=== PATIENT | female | born 1995 | race American Indian/Alaskan Native ===

== ENCOUNTER 2017-01-01 02:18 | Emergency (ER) | payer MEDICAID ==
[2017-01-01] MEDS ORDERED: ATIVAN IM ONE ×2 (02:52→06:47)
[2017-01-01] MEDS ORDERED: TYLENOL PO ONE (04:44)
[2017-01-01 05:45] LABS: Basophils % (Auto) 0.8 % (0.0-1.8); Eosinophils % (Auto) 5.2 % (0.0-4.3); Hematocrit 36.8 % (30.3-42.9); Hemoglobin 11.9 gm/dl (10.1-14.3); Mean Corpuscular HGB Conc 32 % (30-34); Mean Corpuscular Hemoglobin 27 pg (28-32); Mean Corpuscular Volume 84 fl (79-97); Platelet Count 293 K/mm3 (140-440); Red Blood Count 4.37 M/mm3 (3.65-5.03); Red Cell Distribution Width 14.4 % (13.2-15.2); White Blood Count 5.6 K/mm3 (4.5-11.0)
[2017-01-01 06:03] LABS: Anion Gap 19 mmol/L; Blood Urea Nitrogen 6 mg/dL (7-17); Calcium 8.2 mg/dL (8.4-10.2); Carbon Dioxide 23 mmol/L (22-30); Chloride 103.8 mmol/L (98-107); Glucose 92 mg/dL (65-100); Potassium 3.8 mmol/L (3.6-5.0); Sodium 142 mmol/L (137-145)
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
--- NOTE | 2017-01-01 06:32 | Cat Scan Report ---
FINAL REPORT PROCEDURE: CT FACIAL BONES WO CON TECHNIQUE: Computerized tomography of the facial bones and soft tissues with axial and coronal sections performed from the cranial aspect of the frontal sinuses to the caudal portion of the mandible without contrast material. HISTORY: facial pain COMPARISON: No prior studies are available for comparison. FINDINGS: Bones: There is an impacted right medial orbital wall fracture. A slightly displaced nasal bone fracture is noted. The remaining osseous structures appear intact. Paranasal sinuses: Moderate opacification of the bilateral ethmoid and right maxillary sinuses.. Soft tissues: There is moderate soft tissue swelling identified over the right orbit and cheek.. Other: The orbits appear intact. The extraocular muscles are intact without entrapment. There is right orbital emphysema. IMPRESSION: Impacted right medial orbital wall fracture. There is associated orbital emphysema and soft tissue swelling over the right orbit. Mild opacification of the sinuses as described.
[2017-01-01] MEDS ORDERED: ATIVAN ONE (06:34)
[2017-01-01] MEDS ORDERED: HALDOL ONE (06:34)
[2017-01-01] MEDS ORDERED: HALDOL IM ONE (06:47)
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
[2017-01-01] MEDS ORDERED: FUL-GLO OP ONE (10:02)
[2017-01-01] MEDS ORDERED: TETRACAINE 0.5% OD STA (10:02)
[2017-01-01 12:08] VITALS: BP 110/78
== END 2017-01-01 12:09 | disposition home or self-care (01) ==
LOC: ED 02:18
DX: S02.81XA Fracture of other specified skull and facial bones, right side, initial encounter for closed fracture (principal); F10.129 Alcohol abuse with intoxication, unspecified; F17.200 Nicotine dependence, unspecified, uncomplicated; F39 Unspecified mood [affective] disorder; X58.XXXA Exposure to other specified factors, initial encounter; Y93.9 Activity, unspecified; Y99.9 Unspecified external cause status; Y92.9 Unspecified place or not applicable
CPT/HCPCS: 36415; 70450; 70486; 72125; 80048; 82550; 84703; 85025; 96372; 99285; G0480; J1630; J2060; 80320

== ENCOUNTER 2017-01-30 14:54 | Emergency (ER) | payer MEDICAID ==
[2017-01-30 17:34] LABS: Bilirubin,Urine NEG (Negative); Blood,Urine NEG (Negative); Ketones,Urine TR mg/dL (Negative); Leukocyte Esterase,Urine NEG (Negative); Mucus,Urine 3+ /HPF; Nitrite,Urine NEG (Negative)
--- NOTE | 2017-01-30 19:13 | Ultrasound Report ---
FINAL REPORT EXAM: US OB TRANSVAGINAL HISTORY: LOWER PELVIC PAIN quantitative beta HCG level is 5244. TECHNIQUE: Real-time sonography was performed of the gravid uterus endovaginally and images are submitted for interpretation. PRIORS: None. FINDINGS: There is a gestational sac in the uterus. A normal-appearing yolk sac is identified. A pole is not yet demonstrated. Average sac diameter is 9.3 mm for an estimated gestational age of 5 weeks 5 days. There is a small hypoechoic area measuring 17 x 3 x 3 mm possibly representing a small subchorionic hematoma. The right ovary is not visualized. The left ovary has a 3.2 cm echogenic area most likely representing a hemorrhagic cyst. The left ovary measures 4.5 x 3.0 x 2.5 cm. IMPRESSION: Findings are consistent with an early IUP at 5 weeks 5 days. Possible small subchorionic hematoma. Followup ultrasound is recommended in 1-2 weeks
--- NOTE | 2017-01-30 19:19 | Ultrasound Report ---
FINAL REPORT EXAM: US OB \T\lt; = 14 WEEKS FETUS HISTORY: LOWER PELVIC PAIN quantitative beta HCG level is 5244. TECHNIQUE: Real-time sonography was performed of the gravid uterus transabdominally and images are submitted for interpretation. PRIORS: None. FINDINGS: There is a gestational sac in the uterus. A normal-appearing yolk sac is identified. A pole is not yet demonstrated. Average sac diameter is 9.3 mm for an estimated gestational age of 5 weeks 5 days. There is a small hypoechoic area measuring 17 x 3 x 3 mm possibly representing a small subchorionic hematoma. The right ovary is not visualized. The left ovary has a 3.2 cm echogenic area most likely representing a hemorrhagic cyst. The left ovary measures 4.5 x 3.0 x 2.5 cm. IMPRESSION: Findings are consistent with an early IUP at 5 weeks 5 days. Possible small subchorionic hematoma. Followup ultrasound is recommended in 1-2 weeks
--- NOTE | 2017-01-30 21:53 | Emergency Department Report ---
ED Female HPI - General Chief complaint: Urogenital-Female Stated complaint: ABD PAIN Time Seen by Provider: 01/30/17 21:47 Source: patient, RN notes reviewed Mode of arrival: Ambulatory Limitations: No Limitations - History of Present Illness Initial comments: This is a 21-year-old female. I have evaluated her in the past. Her CLERICAL SPECIALIST doctor is with primary obstetrics. She is 2, para 1. She presents to the ER with suprapubic abdominal discomfort and positive home test. No nausea, vomiting or diarrhea. There is no right lower quadrant pain. No irritative or obstructive urinary symptoms. No vaginal bleeding. Symptoms are intermittent. They have no exacerbating factors or relieving factors. MD Complaint: pelvic pain -: Gradual Location: suprapubic Severity: mild Quality: cramping Improves with: none Worsens with: none Are you Now?: Yes Associated Symptoms: abdominal pain. denies: vaginal discharge, vaginal bleeding, headaches, loss of appetite, dysuria, hematuria, rash, seizure, shortness of breath, syncope, weakness - Related Data Sexually active: Yes Previous Rx's Medication Instructions Recorded Last Taken Type Bacitracin [Bacitracin Ophth] 3.5 gm OP Q4HR #1 oint...g. 01/01/17 Unknown Rx Mineral Oil/Petrolatum,White 3.5 gm OP Q1HR #1 oint...g. 01/01/17 Unknown Rx [Refresh Lacri-Lube Ointment] Doxylamine/Pyridoxine HCl 1 each PO QHS PRN #30 tablet. 01/30/17 Unknown Rx [Aleksandra See 10-10 mg Tablet] Vit W-Ca,Fe,FA(<1 mg) 1 each PO QDAY #30 tablet 01/30/17 Unknown Rx [ Vitamins] Allergies Allergy/AdvReac Type Severity Reaction Status Date / Time Penicillins Allergy Itching Verified 01/30/17 16:03 ED Review of Systems ROS: Stated complaint: ABD PAIN Other details as noted in HPI Constitutional: denies: fever, malaise Eyes: denies: eye pain, eye discharge ENT: denies: epistaxis Respiratory: denies: cough Cardiovascular: denies: chest pain Gastrointestinal: abdominal pain Genitourinary: denies: urgency, dysuria, frequency, abnormal menses Musculoskeletal: denies: back pain Skin: denies: lesions Neurological: denies: headache, weakness ED Past Medical Hx - Past Medical History Hx Psychiatric Treatment: Yes (Panic attacks) - Surgical History Additional Surgical History: C section - Social History Smoking Status: Former Smoker Substance Use Type: None - Medications Home Medications: Home Medications Medication Instructions Recorded Confirmed Last Taken Type Bacitracin [Bacitracin Ophth] 3.5 gm OP Q4HR #1 oint...g. 01/01/17 Unknown Rx Mineral Oil/Petrolatum,White 3.5 gm OP Q1HR #1 oint...g. 01/01/17 Unknown Rx [Refresh Lacri-Lube Ointment] Doxylamine/Pyridoxine HCl 1 each PO QHS PRN #30 tablet. 01/30/17 Unknown Rx [Diclegis 10-10 mg Tablet] Vit W-Ca,Fe,FA(<1 mg) 1 each PO QDAY #30 tablet 01/30/17 Unknown Rx [ Vitamins] ED Physical Exam - General Limitations: No Limitations General appearance: alert, in no apparent distress - Head Head exam: Present: atraumatic, normocephalic - Eye Eye exam: Present: normal appearance, EOMI. Absent: nystagmus - ENT ENT exam: Present: normal exam, normal orophraynx, mucous membranes moist, normal external ear exam - Neck Neck exam: Present: normal inspection, full ROM. Absent: tenderness, meningismus - Respiratory Respiratory exam: Present: normal lung sounds bilaterally. Absent: respiratory distress, wheezes, rales, rhonchi, stridor, chest wall tenderness - Cardiovascular Cardiovascular Exam: Present: regular rate, normal rhythm, normal heart sounds. Absent: bradycardia, tachycardia, irregular rhythm, systolic murmur, diastolic murmur, rubs, gallop - GI/Abdominal GI/Abdominal exam: Present: soft, normal bowel sounds. Absent: distended, tenderness, guarding, rebound, rigid, pulsatile mass - Extremities Exam Extremities exam: Present: normal inspection, full ROM, normal capillary refill. Absent: tenderness, pedal edema, joint swelling, calf tenderness - Back Exam Back exam: Present: normal inspection, full ROM. Absent: tenderness, CVA tenderness (R), CVA tenderness (L), muscle spasm, paraspinal tenderness, vertebral tenderness - Neurological Exam Neurological exam: Present: alert, oriented X3, normal gait, other (Extraocular movements intact. Tongue midline. No facial droop. Facial sensation intact to light touch in the V1, V2, V3 distribution bilaterally. 5 and 5 strength in 4 extremities.. Sensation is intact to light touch in 4 extremities.). Absent : motor sensory deficit - Psychiatric Psychiatric exam: Present: normal affect, normal mood - Skin Skin exam: Present: warm, dry, intact, normal color. Absent: rash ED Course Vital Signs 01/30/17 01/30/17 01/30/17 15:58 21:30 23:35 Temperature 98.6 F 98.5 F Pulse Rate 87 86 84 Respiratory 17 18 18 Rate Blood Pressure 109/68 Blood Pressure 113/68 115/74 [Right] O2 Sat by Pulse 100 100 99 Oximetry - Reevaluation(s) Reevaluation #1: 01/30/17 22:15 differential diagnosis: Threatened miscarriage, subchorionic hematoma, urinary tract infection. Assessment and plan: 21-year-old female who is found to be , transvaginal ultrasounds demonstrates a gestational sac of 5 weeks and 5 days, with a probable small subchorionic hematoma. She is afebrile with reassuring vital signs, with no abdominal tenderness, rebound or guarding. Quantitative hCG is 5244. Urinalysis is not corroborate urinary tract infection. CBC and type and screen are ordered. Pelvic examination is pending. Reevaluation #2: 01/30/17 23:15 Rh+. CBC stable. Declined gynecologic examination. Reports that she is going to follow up tomorrow with her outpatient production operations engineer. She will be discharged at this time. Vital signs stable. return precautions reviewed. Incidentally, patient notes that she has not followed up with ophthalmology, she has intact extraocular movements at this time, visual acuity intact to call her perception , finger counting, rating at a close distance. She is instructed to follow up with outpatient ophthalmology. ED Medical Decision Making - Lab Data Result diagrams: 01/30/17 22:00 Vital Signs 01/30/17 01/30/17 15:58 21:30 Temperature 98.6 F Pulse Rate 87 86 Respiratory 17 18 Rate Blood Pressure 109/68 Blood Pressure 113/68 [Right] O2 Sat by Pulse 100 100 Oximetry Lab Results 03/22/17 03/22/17 Range/Units 16:14 Unknown HCG, Quant 5244 H (0-4) mIU/mL Urine Color Yellow (Yellow) Urine Turbidity Clear (Clear) Urine pH 6.0 (5.0-7.0) Ur Specific [place] 1.027 (1.003-1.030) Urine Protein 30 mg/dl (Negative) mg/dL Urine Glucose (UA) Neg (Negative) mg/dL Urine Ketones Tr (Negative) mg/dL Urine Blood Neg (Negative) Urine Nitrite Neg (Negative) Urine Bilirubin Neg (Negative) Urine Urobilinogen 4.0 (<2.0) mg/dL Ur Leukocyte Esterase Neg (Negative) Urine WBC (Auto) 1.0 (0.0-6.0) /HPF Urine RBC (Auto) 2.0 (0.0-6.0) /HPF U Epithel Cells (Auto) 4.0 (0-13.0) /HPF Urine Mucus 3+ /HPF - Radiology Data Radiology results: report reviewed, image reviewed Transvaginal ultrasound demonstrates intrauterine , gestational sac is noted at 5 weeks and 5 days, there is a probable small subchorionic hematoma Critical care attestation.: If time is entered above; I have spent that time in minutes in the direct care of this critically ill patient, excluding procedure time. ED Disposition Clinical Impression: Miscarriage Disposition: DISCHARGED TO HOME OR SELFCARE Is pt being admited?: No Does the pt Need Aspirin: No Condition: Stable Instructions: Threatened Miscarriage (ED) Additional Instructions: Rest and avoid heavy lifting. Avoid strenuous physical activity. Avoid sexual activity. Follow-up with an CLERICAL SPECIALIST doctor within the next week. Return to the ER right away with new pain, worsening pain, migration of pain, fevers or chills , intractable nausea or vomiting, inability to tolerate liquid feeds. Take nausea medication and vitamins as directed. Do not consume alcohol, Motrin, ibuprofen, Aleve, Naprosyn, diphenhydramine or Benadryl. In addition, I recommend you follow up with outpatient ophthalmology as soon as possible for evaluation of your subacute right-sided orbital wall fracture. Not following up with ophthalmology may result in loss of vision, blurry vision, disability. Dr. Whitt is a local ophthalmology specialist. Prescriptions: Doxylamine/Pyridoxine HCl [Aleksandra See 10-10 mg Tablet] 1 each PO QHS PRN #30 [address] COHEN Reason: Nausea Vit W-Ca,Fe,FA(<1 mg) [ Vitamins] 1 each PO QDAY #30 tablet Referrals: [facility] [Provider Group] - 3-5 Days [facility],MD [Primary Care Provider] - 3-5 Days JOSE ROBERTO WHITT MD [Staff Physician] - 3-5 Days
[2017-01-30 22:45] LABS: Hematocrit 34.2 % (30.3-42.9); Mean Corpuscular HGB Conc 32 % (30-34); Mean Corpuscular Hemoglobin 27 pg (28-32); Mean Corpuscular Volume 84 fl (79-97); Platelet Count 180 K/mm3 (140-440); Red Blood Count 4.06 M/mm3 (3.65-5.03); Red Cell Distribution Width 13.1 % (13.2-15.2); White Blood Count 4.4 K/mm3 (4.5-11.0)
[2017-01-30 23:42] VITALS: BP 115/74
== END 2017-01-30 23:40 | disposition home or self-care (01) ==
LOC: ED 14:54
DX: O20.0 Threatened abortion (principal); Z3A.01 Less than 8 weeks gestation of pregnancy
CPT/HCPCS: 36415; 76801; 76817; 81001; 84702; 85027; 86850; 86900; 86901; 99284

== ENCOUNTER 2017-04-05 18:44 | Emergency (ER) | payer MEDICAID ==
[2017-04-05 20:14] LABS: Basophils % (Auto) 0.4 % (0.0-1.8); Eosinophils % (Auto) 2.7 % (0.0-4.3); Hematocrit 28.7 % (30.3-42.9); Hemoglobin 9.7 gm/dl (10.1-14.3); Mean Corpuscular HGB Conc 34 % (30-34); Mean Corpuscular Hemoglobin 29 pg (28-32); Mean Corpuscular Volume 85 fl (79-97); Platelet Count 217 K/mm3 (140-440); Red Blood Count 3.38 M/mm3 (3.65-5.03); Red Cell Distribution Width 13.6 % (13.2-15.2); White Blood Count 10.5 K/mm3 (4.5-11.0)
--- NOTE | 2017-04-05 22:41 | Ultrasound Report ---
FINAL REPORT EXAM: US OB \T\gt; = 14 WEEKS FETUS HISTORY: VAG BLEEDING COMPARISONS: 01/30/2017 FINDINGS: Limited transabdominal grayscale, color and M-mode ultrasound evaluation of the pelvis A single living intrauterine is present with recorded cardiac activity 172 beats per minute. Amniotic fluid volume is subjectively normal with amniotic fluid index of approximately 10 centimeters. Posterior placenta. The cervix is not well visualized during this examination. No perigestational hemorrhage identified. Composite measurements results in estimated gestational age 14 weeks 5 days corresponding to delivery date of 09/29/2017. IMPRESSION: Single living intrauterine with estimated gestational age of 14 weeks 5 days and no acute complication identified on this exam. In the absence of additional symptoms, ultrasound for detailed anatomy survey is suggested at 20 weeks gestational age.
[2017-04-05 23:30] LABS: Bilirubin,Urine NEG (Negative); Blood,Urine NEG (Negative); Ketones,Urine NEG (Negative); Leukocyte Esterase,Urine NEG (Negative); Mucus,Urine 2+ /HPF; Nitrite,Urine NEG (Negative); Protein,Urine <15 mg/dL mg/dL (Negative); Urobilinogen,Urine < 2.0 mg/dL (<2.0)
--- NOTE | 2017-04-06 01:26 | Emergency Department Report ---
ED Female HPI - General Chief complaint: Vaginal Bleeding Stated complaint: 14 WKS ,VAGINAL BLEEDING Source: patient, RN notes reviewed, old records reviewed Mode of arrival: Ambulatory Limitations: No Limitations - History of Present Illness Initial comments: This is a 22-year-old female. She is previously unknown to me. She is 2, para 1. Last menstrual period is December 25. Gynecology: [facility] The patient presents to the ER with vaginal bleeding. It has since resolved. Patient also complains of lower abdominal pain. This pain is crampy. No nausea , vomiting or diarrhea. No fevers. No irritative or obstructive urinary symptoms. Defecating normally. Passing gas normally. sexually active with 1 male partner. MD Complaint: vaginal bleeding -: Gradual Location: labia, suprapubic Severity: mild Quality: cramping Consistency: intermittent Improves with: none Worsens with: none Are you Now?: Yes Associated Symptoms: vaginal bleeding, abdominal pain, other (patient anxious). denies: vaginal discharge, nausea/vomiting, fever/chills, headaches, loss of appetite, dysuria, shortness of breath, syncope, weakness - Related Data Sexually active: Yes Previous Rx's Medication Instructions Recorded Last Taken Type Bacitracin [Bacitracin Ophth] 3.5 gm OP Q4HR #1 oint...g. 01/01/17 Unknown Rx Mineral Oil/Petrolatum,White 3.5 gm OP Q1HR #1 oint...g. 01/01/17 Unknown Rx [Refresh Lacri-Lube Ointment] Doxylamine/Pyridoxine HCl 1 each PO QHS PRN #30 tablet. 01/30/17 Unknown Rx [Aleksandra See 10-10 mg Tablet] Vit W-Ca,Fe,FA(<1 mg) 1 each PO QDAY #30 tablet 01/30/17 Unknown Rx [ Vitamins] Allergies Allergy/AdvReac Type Severity Reaction Status Date / Time Penicillins Allergy Itching Verified 01/30/17 16:03 ED Review of Systems ROS: Stated complaint: 14 WKS ,VAGINAL BLEEDING Other details as noted in HPI Constitutional: denies: fever Eyes: denies: vision change ENT: denies: epistaxis Respiratory: denies: cough Cardiovascular: denies: chest pain Gastrointestinal: abdominal pain Genitourinary: abnormal menses Musculoskeletal: denies: back pain Skin: denies: lesions Neurological: denies: weakness Psychiatric: anxiety ED Past Medical Hx - Past Medical History Previous Medical History?: No Hx Psychiatric Treatment: Yes (Panic attacks) - Surgical History Past Surgical History?: Yes Additional Surgical History: C section - Social History Smoking Status: Never Smoker Substance Use Type: None - Medications Home Medications: Home Medications Medication Instructions Recorded Confirmed Last Taken Type Bacitracin [Bacitracin Ophth] 3.5 gm OP Q4HR #1 oint...g. 01/01/17 Unknown Rx Mineral Oil/Petrolatum,White 3.5 gm OP Q1HR #1 oint...g. 01/01/17 Unknown Rx [Refresh Lacri-Lube Ointment] Doxylamine/Pyridoxine HCl 1 each PO QHS PRN #30 tablet. 01/30/17 Unknown Rx [Diclegis Dr 10-10 mg Tablet] Vit W-Ca,Fe,FA(<1 mg) 1 each PO QDAY #30 tablet 01/30/17 Unknown Rx [ Vitamins] ED Physical Exam - General Limitations: No Limitations General appearance: alert, anxious, in distress - Head Head exam: Present: atraumatic, normocephalic - Eye Eye exam: Present: normal appearance, EOMI. Absent: nystagmus - ENT ENT exam: Present: normal exam, normal orophraynx, mucous membranes moist, normal external ear exam - Neck Neck exam: Present: normal inspection, full ROM. Absent: tenderness, meningismus - Respiratory Respiratory exam: Present: normal lung sounds bilaterally. Absent: respiratory distress, wheezes, rales, rhonchi, stridor, chest wall tenderness - Cardiovascular Cardiovascular Exam: Present: regular rate, normal rhythm, normal heart sounds. Absent: bradycardia, tachycardia, irregular rhythm, systolic murmur, diastolic murmur, rubs, gallop - GI/Abdominal GI/Abdominal exam: Present: soft, normal bowel sounds, other (there is no right lower quadrant tenderness, rebound or guarding. There is no right upper quadrant tenderness. There is negative Recinos sign. There is negative Rovsing sign.). Absent: distended, tenderness, guarding, rebound, rigid, pulsatile mass - External exam: Present: normal external exam Speculum exam: Present: normal speculum exam, other (during the gynecologic examination, I am escorted by nurse Anne Jo). Absent: cervical discharge, vaginal bleeding - Extremities Exam Extremities exam: Present: normal inspection, full ROM, normal capillary refill. Absent: tenderness, pedal edema, joint swelling, calf tenderness - Back Exam Back exam: Present: normal inspection, full ROM. Absent: tenderness, CVA tenderness (R), CVA tenderness (L), muscle spasm, paraspinal tenderness, vertebral tenderness - Neurological Exam Neurological exam: Present: alert, oriented X3, normal gait, other (Extraocular movements intact. Tongue midline. No facial droop. Facial sensation intact to light touch in the V1, V2, V3 distribution bilaterally. 5 and 5 strength in 4 extremities.. Sensation is intact to light touch in 4 extremities.). Absent : motor sensory deficit - Psychiatric Psychiatric exam: Present: anxious - Skin Skin exam: Present: warm, dry, intact, normal color. Absent: rash ED Course Vital Signs 04/05/17 04/05/17 04/06/17 19:35 19:50 00:42 Temperature 98.3 F 98.3 F Pulse Rate 97 H 97 H 72 Respiratory 20 20 18 Rate Blood Pressure 133/84 116/74 Blood Pressure 133/84 [Right] O2 Sat by Pulse 98 98 100 Oximetry 04/06/17 01:32 Temperature Pulse Rate Respiratory 18 Rate Blood Pressure Blood Pressure [Right] O2 Sat by Pulse 98 Oximetry ED Medical Decision Making - Lab Data Result diagrams: 04/05/17 19:58 Vital Signs 04/05/17 04/05/17 04/06/17 19:35 19:50 00:42 Temperature 98.3 F 98.3 F Pulse Rate 97 H 97 H 72 Respiratory 20 20 18 Rate Blood Pressure 133/84 116/74 Blood Pressure 133/84 [Right] O2 Sat by Pulse 98 98 100 Oximetry 04/06/17 01:32 Temperature Pulse Rate Respiratory 18 Rate Blood Pressure Blood Pressure [Right] O2 Sat by Pulse 98 Oximetry Labs 04/05/17 04/05/17 04/05/17 19:58 19:58 20:00 WBC 10.5 RBC 3.38 L Hgb 9.7 L Hct 28.7 L MCV 85 MCH 29 MCHC 34 RDW 13.6 Plt Count 217 Lymph % (Auto) 21.4 [place] % (Auto) 7.9 H Eos % (Auto) 2.7 Baso % (Auto) 0.4 Lymph # 2.2 [place] # 0.8 Eos # 0.3 Baso # 0.0 Seg Neutrophils % 67.6 Seg Neutrophils # 7.1 HCG, Quant 98809 H Urine Color Urine Turbidity Urine pH Ur Specific [place] Urine Protein Urine Glucose (UA) Urine Ketones Urine Blood Urine Nitrite Urine Bilirubin Urine Urobilinogen Ur Leukocyte Esterase Urine WBC (Auto) Urine RBC (Auto) U Epithel Cells (Auto) Urine Mucus Blood Type B POSITIVE Antibody Screen TNR ALFREDO Antibody Screen Negative 04/05/17 23:00 WBC RBC Hgb Hct MCV MCH MCHC RDW Plt Count Lymph % (Auto) [place] % (Auto) Eos % (Auto) Baso % (Auto) Lymph # [place] # Eos # Baso # Seg Neutrophils % Seg Neutrophils # HCG, Quant Urine Color Yellow Urine Turbidity Clear Urine pH 6.0 Ur Specific [place] 1.028 Urine Protein <15 mg/dl Urine Glucose (UA) Neg Urine Ketones Neg Urine Blood Neg Urine Nitrite Neg Urine Bilirubin Neg Urine Urobilinogen < 2.0 Ur Leukocyte Esterase Neg Urine WBC (Auto) 1.0 Urine RBC (Auto) 2.0 U Epithel Cells (Auto) 10.0 Urine Mucus 2+ Blood Type Antibody Screen ALFREDO Antibody Screen - Radiology Data Radiology results: report reviewed, image reviewed Obstetrics ultrasound: Single living intrauterine noted, cardiac activity 172 bpm. Posterior placenta. No kisha-gestational hemorrhage is identified. - Medical Decision Making Differential diagnosis: Anxiety, vaginal bleeding, miscarriage, placenta previa , placental abruption, urinary tract infection Assessment and plan: 26-year-old female who is Rh+, second trimester, ultrasound does not show placenta previa, placental abruption, blood per gestational hemorrhage. Her abdomen is soft and benign, with no rebound, guarding or peritoneal signs, no right upper quadrant tenderness. There is no there is no right lower quadrant tenderness. The patient is somewhat anxious, but during her stay in the emergency room, is noted to be requesting to eat. The patient is eating and drinking without difficulty. At this point in time, does not appear to be any emergent condition, the patient is suitable to follow-up with her outpatient [facility]IGER[facility] doctor for further evaluation and management. The patient is counseled to discontinue sexual activity until cleared by an [facility]ER[facility] doctor. Critical care attestation.: If time is entered above; I have spent that time in minutes in the direct care of this critically ill patient, excluding procedure time. ED Disposition Clinical Impression: , History of vaginal bleeding Disposition: DISCHARGED TO HOME OR SELFCARE Is pt being admited?: No Does the pt Need Aspirin: No Condition: Stable Instructions: Spontaneous Miscarriage (ED) Additional Instructions: Continue current outpatient medications. Rest and avoid heavy lifting. Avoid strenuous physical activity. Do not engage in sexual activity until cleared by an REFRIGERATOR [facility] doctor. Follow-up with an REFRIGERATOR [facility] doctor within next 5-7 days. Return to the ER right away with new pain, worsened pain, migration of pain, fevers, chills, chest pain, shortness of breath, bleeding more than 2 pads soaked through and through per hour, dizziness, lightheadedness, intractable nausea or vomiting, severe fevers, confusion, change in mental status. Referrals: PRIMARY CARE, [Primary Care Provider] - 3-5 Days [facility] [Provider Group] - 3-5 Days [facility] [Provider Group] - 3-5 Days [facility] [Provider Group] - 3-5 Days [facility] [Provider Group] - 3-5 Days
[2017-04-06 01:56] VITALS: BP 118/64
== END 2017-04-06 01:55 | disposition home or self-care (01) ==
LOC: ED 18:44
DX: I20.9 Angina pectoris, unspecified (principal); Z3A.00 Weeks of gestation of pregnancy not specified
CPT/HCPCS: 36415; 76805; 81001; 84702; 85025; 86850; 86900; 86901; 99284

== ENCOUNTER 2017-07-07 12:18 | Outpatient (CLI) | payer MEDICAID, OTHER ==
[2017-07-07] MEDS ORDERED: LACTATED RINGERS 500 ML IV SCH (13:09)
[2017-07-07] MEDS ORDERED: LACTATED RINGERS 1,000 ML ONE (13:14)
[2017-07-07 13:19] VITALS: BP 107/58
[2017-07-07 13:32] LABS: Bacteria,Urine 1+ /HPF (Negative); Bilirubin,Urine NEG (Negative); Blood,Urine NEG (Negative); Ketones,Urine NEG (Negative); Leukocyte Esterase,Urine LG (Negative); Mucus,Urine FEW /HPF; Nitrite,Urine NEG (Negative); Protein,Urine <15 mg/dL mg/dL (Negative); Urobilinogen,Urine < 2.0 mg/dL (<2.0)
[2017-07-07] MEDS ORDERED: LACTATED RINGERS 1,000 ML IV SCH (14:00)
--- NOTE | 2017-07-07 15:39 | Ultrasound Report ---
FINAL REPORT PROCEDURE: US RENAL BILAT TECHNIQUE: Real-time sonography in multiple planes of the kidneys, ureters and urinary bladder was performed with image documentation. CPT 44883 HISTORY: BACK PAIN COMPARISON: No prior studies are available for comparison. FINDINGS: RIGHT kidney: Normal echotexture. No focal renal mass, calculus, or hydronephrosis. Length: 12.6 x 5.3 x 6.3 cm. LEFT kidney: Normal echotexture. No focal renal mass, calculus, or hydronephrosis. Length: 12.4 x 6.5 x 5.5cm. Bladder: Normal. IMPRESSION: Unremarkable study.
== END 2017-07-07 16:26 | disposition home or self-care (01) ==
LOC: TRG 12:18
PROVIDERS: ATTEND Obstetrics & Gynecology
DX: O26.892 Other specified pregnancy related conditions, second trimester (principal); M54.9 Dorsalgia, unspecified; O47.02 False labor before 37 completed weeks of gestation, second trimester; Z3A.27 27 weeks gestation of pregnancy
CPT/HCPCS: 59025; 76770; 81001; 96360; 96361; J7120

== ENCOUNTER 2017-07-13 10:24 | Outpatient (CLI) | payer OTHER ==
[2017-07-13 10:53] VITALS: BP 111/65
[2017-07-13] MEDS ORDERED: LACTATED RINGERS 500 ML IV ONE (11:30)
== END 2017-07-13 13:59 | disposition home or self-care (01) ==
LOC: TRG 10:24
PROVIDERS: ATTEND Obstetrics & Gynecology
DX: O47.02 False labor before 37 completed weeks of gestation, second trimester (principal); Z3A.28 28 weeks gestation of pregnancy
CPT/HCPCS: 59025; 96360; J7120

== ENCOUNTER 2017-08-22 16:46 | Outpatient (CLI) | payer OTHER ==
[2017-08-22 17:19] VITALS: BP 112/60
[2017-08-22 17:54] LABS: Bilirubin,Urine NEG (Negative); Blood,Urine NEG (Negative); Ketones,Urine NEG (Negative); Leukocyte Esterase,Urine TR (Negative); Mucus,Urine FEW /HPF; Nitrite,Urine NEG (Negative)
[2017-08-22] MEDS ORDERED: LACTATED RINGERS 1,000 ML IV SCH (19:17)
== END 2017-08-22 19:00 | disposition left against medical advice (07) ==
LOC: TRG 16:46
PROVIDERS: ATTEND Obstetrics & Gynecology
DX: O47.03 False labor before 37 completed weeks of gestation, third trimester (principal); Z3A.34 34 weeks gestation of pregnancy
CPT/HCPCS: 81001; J7120

== ENCOUNTER 2018-08-04 11:26 | Inpatient (IN) | payer OTHER ==
--- NOTE | 2018-08-04 13:22 | History and Physical Report ---
History of Present Illness Date of examination: 08/04/18 Date of admission: 08/04/18 11:26 Chief complaint: IUFD @ 19 weeks History of present illness: Pt is a 23yo BF EDC 12/26/18; EGA 19 4/7 weeks presents from the office after Ob u/s showed IUFD @ 19 weeks. She received care at [facility] since 10 weeks, and course has been complicated by previous C Section x 2. She now presents for induction of labor due to IUFD. records are available. Past History Past Medical History: no pertinent history Past Surgical History: section Social history: no significant social history, single - Obstetrical History Expected Date of Delivery: 12/26/18 Actual Gestation: 19 Week(s) 4 Day(s) : 5 Medications and Allergies Allergies Allergy/AdvReac Type Severity Reaction Status Date / Time Latex, Natural Rubber Allergy Unknown Verified 09/11/17 18:40 Penicillins Allergy Itching Verified 01/30/17 16:03 Home Medications Medication Instructions Recorded Confirmed Last Taken Type Vit Calc,Iron,Folic 1 each PO QDAY #30 tablet 01/30/17 08/04/18 21:00 Rx [ Vitamins] Ferrous Sulfate [Feosol] 325 mg PO QDAY 09/09/17 08/04/18 09/08/17 11:00 History Ferrous Sulfate [Feosol 325 MG tab] 325 mg PO BID #60 tablet 09/11/17 08/04/18 Unknown Rx HYDROcodone/APAP 5-325 [[place] 1 each PO Q6HR PRN #30 tablet 09/11/17 08/04/18 Unknown Rx 5/325] Ibuprofen [Motrin] 800 mg PO Q8HR PRN #30 tablet 09/11/17 08/04/18 Unknown Rx Vit Calc,Iron,Folic 1 each PO DAILY #30 tablet 09/11/17 08/04/18 21:00 Rx [ Vitamins] Review of Systems All systems: negative - Vital Signs Vital signs: Vital Signs Pulse BP 72 112/65 08/04/18 12:28 08/04/18 12:28 Temp Pulse Resp BP Pulse Ox 97.4 F L 67 18 112/65 97 08/04/18 12:29 08/04/18 12:29 08/04/18 12:29 08/04/18 12:29 08/04/18 12:29 - Physical Exam Breasts: Positive: deferred Cardiovascular: Regular rate Lungs: Positive: Clear to auscultation Abdomen: Positive: normal appearance, soft Genitourinary (Female): Positive: normal external genitalia Uterus: Positive: enlarged Extremities: Positive: normal - Obstetrical FHR: other Results Result Diagrams: 08/04/18 13:27 All other labs normal. Ultrasound: report reviewed Assessment and Plan - Patient Problems (1) 19 weeks gestation of Onset Date: 08/05/18 Current Visit: Yes Status: Acute Plan to address problem: A: IUFD @ 19 4/7 weeks Previous C Section x 2 P: Admit to L&D for cervidil/cytotec induction of labor (2) IUFD at less than 20 weeks of gestation Onset Date: 08/05/18 Current Visit: Yes Status: Acute
[2018-08-04] MEDS ORDERED: SUBLIMAZE IV PRN (13:30)
[2018-08-04] MEDS ORDERED: XYLOCAINE 2% INFILTRATI NR (13:30)
[2018-08-04 13:52] LABS: Hemoglobin 10.3 gm/dl (10.1-14.3); Mean Corpuscular HGB Conc 33 % (30-34); Mean Corpuscular Hemoglobin 29 pg (28-32); Mean Corpuscular Volume 86 fl (79-97); Platelet Count 216 K/mm3 (140-440); Red Cell Distribution Width 13.4 % (13.2-15.2)
[2018-08-04] MEDS ORDERED: BRETHINE SUB-Q PRN (14:00)
[2018-08-04] MEDS ORDERED: BRETHINE IVP PRN (14:00)
[2018-08-04] MEDS ORDERED: ZOFRAN IV PRN (14:00)
[2018-08-04] MEDS ORDERED: [UNRECOGNIZED DRUG - OTHER] VG ONE (14:00)
[2018-08-04] MEDS ORDERED: PITOCin/NS 30 UNIT/500ML 30 UNITS/500 ML BAG IV SCH (14:00)
[2018-08-04] MEDS ORDERED: MINERAL OIL PO PRN (14:00)
[2018-08-04] MEDS ORDERED: IMODIUM PO PRN (14:00)
[2018-08-04] MEDS ORDERED: PITOCin/NS 20 UNIT/1000ML DRIP 20 UNITS/1,000 ML BAG IV SCH (14:00)
--- NOTE | 2018-08-04 15:01 | Ultrasound Report ---
ULTRASOUND OB LIMITED History: No movement Technique: Transabdominal ultrasound with Doppler interrogation. Gestation: Single Position: Cephalic Heart Rate: 0 BPM Impression: demise.
[2018-08-04] MEDS ORDERED: TYLENOL ONE (16:43)
[2018-08-04] MEDS: LACTATED RINGERS 1,000 ML IV SCH (16:50)
[2018-08-04] MEDS: STADOL IV PRN ×3 (17:03→23:15)
[2018-08-04] MEDS ORDERED: [UNRECOGNIZED DRUG - OTHER] VG SCH (20:00)
[2018-08-05] MEDS: LACTATED RINGERS 1,000 ML IV SCH (00:24)
[2018-08-05] MEDS ORDERED: CERVIDIL VG ONE (02:30)
[2018-08-05] MEDS ORDERED: TYLENOL PO PRN (02:40)
--- NOTE | 2018-08-05 11:43 | Progress Note ---
Assessment and Plan - Patient Problems (1) 19 weeks gestation of Onset Date: 08/05/18 Current Visit: Yes Status: Acute Plan to address problem: A: IUFD @ 19 4/7 weeks Previous C Section x 2 P: Continue with cervidil/cytotec induction of labor (2) IUFD at less than 20 weeks of gestation Onset Date: 08/05/18 Current Visit: Yes Status: Acute Subjective - Subjective Date of service: 08/05/18 Principal diagnosis: IUFD @ 19 weeks Interval history: Pt is a 23yo BF EDC 12/26/18; EGA 19 4/7 weeks presents from the office after Ob u/s showed IUFD @ 19 weeks. She received Prostin and Cervidil last night, and currently not having much contractions. Patient reports: contractions, no new complaints, no loss of fluid, no vaginal bleeding, no movement normal Objective - Vital Signs Vital Signs: Vital Signs - 12hr 08/05/18 08/05/18 08/05/18 09:16 09:17 09:18 Temperature 98.1 F Pulse Rate 75 77 75 Respiratory 18 Rate Blood Pressure 113/57 Blood Pressure 113/57 [Right] O2 Sat by Pulse 97 Oximetry - Exam Abdomen: Present: normal appearance, soft Uterine Contraction Pattern: Absent - Labs Labs: Abnormal Labs 08/04/18 13:27 RBC 3.60 L Laboratory Results - last 24 hr 08/04/18 08/04/18 08/04/18 13:27 13:27 13:43 WBC 7.4 RBC 3.60 L Hgb 10.3 Hct 31.0 MCV 86 MCH 29 MCHC 33 RDW 13.4 Plt Count 216 RPR Nonreactive Blood Type B POSITIVE Antibody Screen Negative
[2018-08-05] MEDS: STADOL IV PRN (12:46)
[2018-08-05] MEDS ORDERED: CYTOTEC VG SCH (15:00)
[2018-08-05] MEDS ORDERED: AMBIEN PO PRN (20:38)
[2018-08-05] MEDS: CYTOTEC VG SCH (21:32)
[2018-08-06] MEDS: STADOL IV PRN ×4 (01:30→22:34)
[2018-08-06] MEDS: CYTOTEC VG SCH ×3 (03:34→19:45)
--- NOTE | 2018-08-06 08:02 | Progress Note ---
Assessment and Plan - Patient Problems (1) 19 weeks gestation of Onset Date: 08/05/18 Current Visit: Yes Status: Acute Plan to address problem: A: IUFD @ 19 4/7 weeks Previous C Section x 2 P: Will begin with Cytotec induction of labor (2) IUFD at less than 20 weeks of gestation Onset Date: 08/05/18 Current Visit: Yes Status: Acute Subjective - Subjective Date of service: 08/06/18 Principal diagnosis: IUFD @ 19 weeks Interval history: Pt is a 23yo BF EDC 12/26/18; EGA 19 4/7 weeks presents from the office after Ob u/s showed IUFD @ 19 weeks. She received Prostin and Cervidil last night, and currently not having much contractions. Will begin Cytotec. Patient reports: contractions, no new complaints, no loss of fluid, no vaginal bleeding, no movement normal Objective - Vital Signs Vital Signs: Vital Signs - 12hr 08/05/18 08/06/18 21:41 03:35 Temperature 98.5 F Pulse Rate 73 Respiratory 18 Rate Blood Pressure 110/56 - Labs Labs: Abnormal Labs 08/04/18 13:27 RBC 3.60 L Laboratory Results - last 24 hr 08/04/18 13:27 RPR Nonreactive
[2018-08-06] MEDS ORDERED: CYTOTEC PR SCH (15:00)
[2018-08-07] MEDS: CYTOTEC VG SCH (00:08)
[2018-08-07] MEDS ORDERED: CYTOTEC PO SCH ×2 (06:00→09:30)
--- NOTE | 2018-08-07 08:36 | Progress Note ---
Assessment and Plan - Patient Problems (1) 19 weeks gestation of Onset Date: 08/05/18 Current Visit: Yes Status: Acute Plan to address problem: A: IUFD @ 19 4/7 weeks Previous C Section x 2 P: Continue with Cytotec induction of labor (2) IUFD at less than 20 weeks of gestation Onset Date: 08/05/18 Current Visit: Yes Status: Acute Subjective - Subjective Date of service: 08/07/18 Principal diagnosis: IUFD @ 19 weeks Interval history: Pt is a 23yo BF EDC 12/26/18; EGA 19 4/7 weeks presents from the office after Ob u/s showed IUFD @ 19 weeks. She received Prostin, Cervidil and now Cytotec and currently not having much contractions. Discussed with Dr Bravo to increase the Cytotec as necessary. Patient reports: contractions, no new complaints, no loss of fluid, no vaginal bleeding, no movement normal Objective - Vital Signs Vital Signs: Vital Signs - 12hr 08/06/18 23:04 Respiratory 18 Rate - Exam Abdomen: Present: normal appearance, soft Uterus: Present: normal Uterine Contraction Monitor Mode: External - Labs Labs: Abnormal Labs 08/04/18 13:27 RBC 3.60 L
[2018-08-07] MEDS: STADOL IV PRN ×5 (09:17→23:34)
[2018-08-07] MEDS: LACTATED RINGERS 1,000 ML IV SCH ×2 (09:18→21:32)
[2018-08-07] MEDS: CYTOTEC PO SCH ×4 (12:32→21:27)
[2018-08-08] MEDS: CYTOTEC PO SCH (00:44)
--- NOTE | 2018-08-08 02:32 | Procedure Note ---
OB Delivery Note - Delivery Date of Delivery: 08/08/18 Surgeon: ELIZABETH RODRIGUEZ Estimated blood loss: 100cc - Vaginal Delivery presentation: vertex Delivery position: OA Intrapartum events: labor-<37 weeks, PROM->1hr before delivery, prolonged labor- > = 20hr Delivery induction: misoprostol Delivery augmentation: rupture of membranes Delivery monitor: external uterine Route of delivery: Delivery placenta: spontaneous Delivery cord: 3 umbilical vessels Episiotomy: none Delivery laceration: none Anesthesia: intravenous - Infant A at 1 minute: 0 at 5 minutes: 0 Infant Gender: Female (121gms)
[2018-08-08] MEDS ORDERED: NORCO 5/325 PO PRN (02:35)
[2018-08-08] MEDS ORDERED: DULCOLAX PR PRN (02:35)
[2018-08-08] MEDS ORDERED: PHENERGAN PO PRN (02:35)
[2018-08-08] MEDS ORDERED: PHENERGAN PR PRN (02:35)
[2018-08-08] MEDS ORDERED: TYLENOL PO PRN (02:35)
[2018-08-08] MEDS ORDERED: MILK OF MAGNESIA PO PRN (02:35)
[2018-08-08] MEDS ORDERED: ZOFRAN IV PRN (02:35)
[2018-08-08] MEDS ORDERED: TUCKS PAD TP PRN (02:35)
[2018-08-08] MEDS ORDERED: BENADRYL PO PRN (02:35)
[2018-08-08] MEDS ORDERED: LANSINOH TP PRN (02:35)
[2018-08-08] MEDS ORDERED: PITOCin/NS 20 UNIT/1000ML DRIP 20 UNITS/1,000 ML BAG IV SCH (03:00)
[2018-08-08] MEDS ORDERED: SODIUM CHLORIDE FLUSH SYRINGE 10 ML IV PRN (03:00)
[2018-08-08] MEDS: MOTRIN PO SCH ×3 (04:00→18:30)
[2018-08-08] MEDS ORDERED: PRENATAL VITAMIN PO SCH (10:00)
[2018-08-08] MEDS ORDERED: COLACE PO SCH (10:00)
[2018-08-08 15:04] LABS: Hematocrit 27.7 % (30.3-42.9); Hemoglobin 9.4 gm/dl (10.1-14.3)
[2018-08-09] MEDS: MOTRIN PO SCH ×2 (00:34→09:52)
[2018-08-09] MEDS ORDERED: M-M-R II VACCINE SUB-Q ONE (02:35)
[2018-08-09] MEDS ORDERED: BOOSTRIX IM ONE (06:00)
[2018-08-09 06:52] VITALS: BP 112/56
--- NOTE | 2018-08-09 11:48 | Progress Note ---
Assessment and Plan - Patient Problems (1) 19 weeks gestation of Onset Date: 08/05/18 Current Visit: Yes Status: Resolved (2) IUFD at less than 20 weeks of gestation Onset Date: 08/05/18 Current Visit: Yes Status: Resolved (3) (normal spontaneous vaginal delivery) Onset Date: 08/09/18 Current Visit: Yes Status: Resolved Plan to address problem: A: S/P (IUFD) - PPD #1 Doing well Asymptomatic anemia - stable P: May go home today. Subjective - Subjective Date of service: 08/09/18 Principal diagnosis: s/p - PPD #1 Interval history: Pt is feeling well without complaints. Ready to go home. Patient reports: appetite normal, voiding normally, pain well controlled, flatus , ambulating normally, no dizzy ambulation, no nauseated : Objective - Vital Signs Latest vital signs: Vital Signs Temp Pulse Resp BP 08/09/18 09:52 18 08/09/18 04:35 98.6 F 73 18 112/56 08/09/18 00:00 98.0 F 71 18 102/57 08/08/18 20:10 93 F L 72 18 96/51 08/08/18 17:14 98.9 F 71 18 102/57 Intake and Output 08/08/18 08/09/18 08/09/18 22:59 06:59 14:59 Intake Total 360 240 Balance 360 240 Intake: Oral 360 240 Other: Total, Intake Amount 360 240 Voiding Method Toilet # Voids Void 1 1 - Exam Breasts: Present: deferred Cardiovascular: Present: Regular rate Lungs: Present: Clear to auscultation Abdomen: Present: normal appearance, soft Uterus: Present: normal, firm, fundal height below umbilicus Extremities: Present: normal - Labs Labs: Abnormal lab results 08/08/18 Range/Units 14:51 Hgb 9.4 L (10.1-14.3) gm/dl Hct 27.7 L (30.3-42.9) % Laboratory Tests 08/04/18 08/04/18 08/04/18 13:27 13:27 13:43 WBC 7.4 RBC 3.60 L Hgb 10.3 Hct 31.0 MCV 86 MCH 29 MCHC 33 RDW 13.4 Plt Count 216 RPR Nonreactive Blood Type B POSITIVE Antibody Screen Negative 08/08/18 14:51 WBC RBC Hgb 9.4 L Hct 27.7 L MCV MCH MCHC RDW Plt Count RPR Blood Type Antibody Screen
--- NOTE | 2018-08-09 11:55 | Discharge Summary ---
Providers - Providers Date of Admission: 08/04/18 11:26 Date of discharge: 08/09/18 Attending physician: ELIZABETH RODRIGUEZ Primary care physician: ELIZABETH RODRIGUEZ Hospitalization Reason for admission: IUP - , induction of labor, IUFD Delivery: Episiotomy: none Laceration: none Incision: normal Other procedures: none complications: none Discharge diagnosis: other (IUFD) [place] baby: female Hospital course: Unremarkable. Condition at discharge: Good Disposition: DC-01 TO HOME OR SELFCARE - Discharge Diagnoses (1) 19 weeks gestation of Status: Resolved (2) IUFD at less than 20 weeks of gestation Status: Resolved (3) (normal spontaneous vaginal delivery) Status: Resolved Plan - Discharge Medications Prescriptions: Ferrous Sulfate [Feosol 325 MG tab] 325 mg PO BID #60 tablet Ibuprofen [Motrin 600 MG tab] 600 mg PO Q6H #30 tablet Vit-Fe Fumar-FA [ Vitamin] 1 each PO QDAY #30 tablet - Provider Discharge Summary Activity: routine, no sex for 6 weeks, no heavy lifting 4 weeks, no strenuous exercise Diet: routine Instructions: routine Additional instructions: [] Smoking cessation referral if applicable(refer to patient education folder for contact #) [] Refer to [facility] Booklet Call your doctor immediately for: * Fever > 100.5 * Heavy vaginal bleeding ( >1 pad per hour) * Severe persistent headache * Shortness of breath * Reddened, hot, painful area to leg or breast * Drainage or odor from incision. * Keep incision clean and dry at all times and follow doctor's instructions regarding bathing/showering - Follow up plan Follow up: ELIZABETH RODRIGUEZ MD [Primary Care Provider] - 14 Days Forms: Work/School Excuse Out Patient
== END 2018-08-09 13:45 | disposition home or self-care (01) | DRG 779 ==
LOC: LD 11:26 → OB 08-08 04:29
PROVIDERS: ADMIT Obstetrics & Gynecology; ATTEND Obstetrics & Gynecology
PROC: 10E0XZZ Delivery of Products of Conception, External Approach (ICD-10-PCS; principal; 2018-08-08)
PROC: 3E0P7VZ Introduction of Hormone into Female Reproductive, Via Natural or Artificial Opening (ICD-10-PCS; 2018-08-08)
PROC: 3E0234Z Introduction of Serum, Toxoid and Vaccine into Muscle, Percutaneous Approach (ICD-10-PCS; 2018-08-09)
DX: O02.1 Missed abortion (principal); Z23 Encounter for immunization; Z88.0 Allergy status to penicillin; Z88.8 Allergy status to other drugs, medicaments and biological substances; D64.9 Anemia, unspecified
CPT/HCPCS: 36415; 76815; 85014; 85018; 85027; 86592; 86850; 86900; 86901; 88305; J0595; J2405; J2590; J3010; J7120

== ENCOUNTER 2018-08-11 21:31 | Emergency (ER) | payer SELFPAY ==
[2018-08-11 23:25] LABS: Bilirubin,Urine NEG (Negative); Blood,Urine LG (Negative); Color,Urine Yellow (Yellow); Mucus,Urine 2+ /HPF
[2018-08-11 23:34] LABS: RBC,Urine > 182.0 /HPF (0.0-6.0)
--- NOTE | 2018-08-12 00:49 | Emergency Department Report ---
ED Female HPI - General Chief complaint: Vaginal Bleeding Stated complaint: ABD PAIN; 4DYS PP Time Seen by Provider: 08/11/18 22:37 Source: patient Mode of arrival: Ambulatory Limitations: No Limitations - History of Present Illness Initial comments: Patient is 23 years old female 4 para 2 with recent IUFD, patient hadn' t delivery by Dr. Marc Colbert 5 days ago. She presented today complaining off continuous abdominal cramping and passing blood clots. Patient denied any fever, dizziness or lightheadedness. She also denied any chest pain or shortness of breath. MD Complaint: vaginal bleeding -: days(s) Severity: moderate Consistency: intermittent - Related Data Home Medications Medication Instructions Recorded Confirmed Last Taken Ferrous Sulfate [Feosol] 325 mg PO QDAY 09/09/17 08/04/18 09/08/17 11:00 Previous Rx's Medication Instructions Recorded Last Taken Type Vit Calc,Iron,Folic 1 each PO QDAY #30 tablet 01/30/17 08/03/18 21:00 Rx [ Vitamins] HYDROcodone/APAP 5-325 [[place] 1 each PO Q6HR PRN #30 tablet 09/11/17 Unknown Rx 5/325] Ibuprofen [Motrin] 800 mg PO Q8HR PRN #30 tablet 09/11/17 Unknown Rx Vit Calc,Iron,Folic 1 each PO DAILY #30 tablet 09/11/17 08/03/18 21:00 Rx [ Vitamins] Ferrous Sulfate [Feosol 325 MG tab] 325 mg PO BID #60 tablet 08/09/18 Unknown Rx Ibuprofen [Motrin 600 MG tab] 600 mg PO Q6H #30 tablet 08/09/18 Unknown Rx Vit-Fe Fumar-FA [ 1 each PO QDAY #30 tablet 08/09/18 Unknown Rx Vitamin] Allergies Allergy/AdvReac Type Severity Reaction Status Date / Time Latex, Natural Rubber Allergy Unknown Verified 09/11/17 18:40 Penicillins Allergy Itching Verified 01/30/17 16:03 ED Review of Systems ROS: Stated complaint: ABD PAIN; 4DYS PP Other details as noted in HPI Comment: All other systems reviewed and negative Constitutional: denies: chills, fever Respiratory: denies: cough, orthopnea, shortness of breath, SOB with exertion, SOB at rest Cardiovascular: denies: chest pain, palpitations Gastrointestinal: abdominal pain. 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) Hx Seizures: No Hx Psychiatric Treatment: Yes (Panic attacks) Hx Asthma: No Hx COPD: No Hx HIV: No - Surgical History Additional Surgical History: C section - Social History Smoking Status: Current Every Day Smoker Substance Use Type: Alcohol - Medications Home Medications: Home Medications Medication Instructions Recorded Confirmed Last Taken Type Vit Calc,Iron,Folic 1 each PO QDAY #30 tablet 01/30/17 08/04/18 21:00 Rx [ Vitamins] Ferrous Sulfate [Feosol] 325 mg PO QDAY 09/09/17 08/04/18 09/08/17 11:00 History HYDROcodone/APAP 5-325 [[place] 1 each PO Q6HR PRN #30 tablet 09/11/17 08/04/18 Unknown Rx 5/325] Ibuprofen [Motrin] 800 mg PO Q8HR PRN #30 tablet 09/11/17 08/04/18 Unknown Rx Vit Calc,Iron,Folic 1 each PO DAILY #30 tablet 09/11/17 08/04/18 21:00 Rx [ Vitamins] Ferrous Sulfate [Feosol 325 MG tab] 325 mg PO BID #60 tablet 08/09/18 Unknown Rx Ibuprofen [Motrin 600 MG tab] 600 mg PO Q6H #30 tablet 08/09/18 Unknown Rx Vit-Fe Fumar-FA [ 1 each PO QDAY #30 tablet 08/09/18 Unknown Rx Vitamin] ED Physical Exam - General Limitations: No Limitations General appearance: alert, in no apparent distress - Head Head exam: Present: atraumatic, normocephalic, normal inspection - Eye Eye exam: Present: normal appearance, PERRL - ENT ENT exam: Present: normal exam, normal orophraynx, mucous membranes moist - Neck Neck exam: Present: normal inspection, full ROM. Absent: tenderness, meningismus, lymphadenopathy, thyromegaly - Respiratory Respiratory exam: Present: normal lung sounds bilaterally. Absent: respiratory distress, wheezes, rales, rhonchi, chest wall tenderness, accessory muscle use, decreased breath sounds, prolonged expiratory - Cardiovascular Cardiovascular Exam: Present: regular rate, normal rhythm, normal heart sounds - GI/Abdominal GI/Abdominal exam: Present: soft, normal bowel sounds. Absent: distended, tenderness, guarding, rebound, rigid, mass, bruit - Extremities Exam Extremities exam: Present: normal inspection, full ROM, normal capillary refill. Absent: pedal edema, calf tenderness - Back Exam Back exam: Present: normal inspection, full ROM. Absent: tenderness, CVA tenderness (R), CVA tenderness (L), muscle spasm, paraspinal tenderness, vertebral tenderness - Neurological Exam Neurological exam: Present: alert, oriented X3, CN II-XII intact, normal gait, reflexes normal - Skin Skin exam: Present: warm, intact, normal color ED Course Vital Signs 08/11/18 08/11/18 08/12/18 21:42 21:58 00:02 Temperature 98.8 F 98.8 F Pulse Rate 83 80 Respiratory 18 18 16 Rate Blood Pressure 130/76 130/80 Blood Pressure [Left] O2 Sat by Pulse 99 100 98 Oximetry 08/12/18 08/12/18 08/12/18 01:23 01:53 02:18 Temperature 98.4 F Pulse Rate 63 Respiratory 16 16 16 Rate Blood Pressure Blood Pressure 110/73 [Left] O2 Sat by Pulse 97 Oximetry ED Medical Decision Making - Radiology Data Radiology results: report reviewed Referring Physician: HAIR BLACK Patient Name: CHRISTOPHER WOOD Date of : 1995 Sex: Female Report Date: 2018-08-12 Report Status: Finalized Findings [facility] [address] [place] [address] Ultrasound Report Signed Patient: CHRISTOPHER WOOD MR#: [id number] : 1995 Acct:[id number] Age/Sex: 23 / F ADM Date: 08/11/18 Loc: ED Attending Dr: Ordering Physician: HAIR BLACK Date of Service: 08/12/18 Procedure(s): US pelvic complete Accession Number(s): [id number] cc: HAIR BLACK FINAL REPORT EXAM: US PELVIC COMPLETE HISTORY: ABDOMINAL PAIN , retained product of conception TECHNIQUE: Transabdominal imaging was obtained of the pelvis. FINDINGS: The uterus is anteverted measuring 10.1 cm x 5.8 cm by 6.4 cm. The endometrial thickness is 4.5 mm. The endometrium is homogeneous. Free fluid is not seen. The ovaries are appropriate size contour and echotexture. The right ovary measures 3.3 cm x 1.2 cm x 3.3 cm. There is a functional cyst in the right ovary measuring up to 1.8 cm in diameter. The left ovary measures 3.4 cm x 2.2 cm x 2.5 cm. IMPRESSION: Homogeneous normal-appearing endometrium measuring 4.5 mm in thickness. No evidence of retained products of conception. 1.8 cm functional cyst in the right ovary. No evidence of free fluid. Transcribed By: RB Dictated By: SHANITA BRANNON MD Electronically Authenticated By: SHANITA BRANNON MD Signed Date/Time: 08/12/18241 DD/ 1 TD/TT: 08/12/18241 Critical care attestation.: If time is entered above; I have spent that time in minutes in the direct care of this critically ill patient, excluding procedure time. ED Disposition Clinical Impression: bleeding Disposition: DC-01 TO HOME OR SELFCARE Is pt being admited?: No Condition: Stable Instructions: Bleeding (ED) Referrals: MARC COLBERT MD [Staff Physician] - 3-5 Days
[2018-08-12] MEDS ORDERED: TORADOL IM ONE (01:14)
[2018-08-12 02:20] VITALS: BP 110/73
--- NOTE | 2018-08-12 02:42 | Ultrasound Report ---
FINAL REPORT EXAM: US PELVIC COMPLETE HISTORY: ABDOMINAL PAIN , retained product of conception TECHNIQUE: Transabdominal imaging was obtained of the pelvis. FINDINGS: The uterus is anteverted measuring 10.1 cm x 5.8 cm by 6.4 cm. The endometrial thickness is 4.5 mm. The endometrium is homogeneous. Free fluid is not seen. The ovaries are appropriate size contour and echotexture. The right ovary measures 3.3 cm x 1.2 cm x 3.3 cm. There is a functional cyst in the right ovary measuring up to 1.8 cm in diameter. The left ovary measures 3.4 cm x 2.2 cm x 2.5 cm. IMPRESSION: Homogeneous normal-appearing endometrium measuring 4.5 mm in thickness. No evidence of retained products of conception. 1.8 cm functional cyst in the right ovary. No evidence of free fluid.
== END 2018-08-12 03:41 | disposition home or self-care (01) ==
LOC: ED 21:31
DX: O90.9 Complication of the puerperium, unspecified (principal); O72.1 Other immediate postpartum hemorrhage; F17.200 Nicotine dependence, unspecified, uncomplicated; D57.3 Sickle-cell trait; F41.0 Panic disorder [episodic paroxysmal anxiety]; Z79.899 Other long term (current) drug therapy; Z91.040 Latex allergy status; Z88.0 Allergy status to penicillin
CPT/HCPCS: 76856; 81001; 96372; 99284; J1885

== ENCOUNTER 2020-04-24 21:09 | Emergency (ER) | payer OTHER ==
[2020-04-24 22:51] VITALS: BP 114/54
== END 2020-04-25 00:47 | disposition left against medical advice (07) ==
LOC: ED 21:09
DX: M25.542 Pain in joints of left hand (principal); Z53.21 Procedure and treatment not carried out due to patient leaving prior to being seen by health care provider

== ENCOUNTER 2020-08-25 14:02 | Emergency (ER) | payer OTHER ==
[2020-08-25 14:14] VITALS: BP 123/66
== END 2020-08-25 15:00 | disposition left against medical advice (07) ==
LOC: APU 14:02 → ED 14:02 → EDSTATUS 14:05 → ED 15:00
DX: R05 Cough (principal); R50.9 Fever, unspecified; Z53.21 Procedure and treatment not carried out due to patient leaving prior to being seen by health care provider

== ENCOUNTER 2020-10-08 03:47 | Outpatient (CLI) | payer OTHER ==
[2020-10-08] MEDS ORDERED: LACTATED RINGERS 1,000 ML ONE (04:22)
[2020-10-08] MEDS ORDERED: LACTATED RINGERS 1,000 ML IV ONE ×2 (04:37→07:34)
[2020-10-08] MEDS ORDERED: BUTORPHANOL 2 MG/1 ML INJ IV ONE (04:57)
[2020-10-08 05:05] LABS: Bilirubin,Urine NEG (Negative); Blood,Urine NEG (Negative); Color,Urine Straw (Yellow); Protein,Urine <15 mg/dL mg/dL (Negative); Urobilinogen,Urine < 2.0 mg/dL (<2.0)
[2020-10-08 09:15] LABS: Bilirubin,Urine NEG (Negative); Blood,Urine NEG (Negative); Color,Urine Straw (Yellow); Hyaline Casts,Urine 1 /LPF; Mucus,Urine FEW /HPF; Protein,Urine <15 mg/dL mg/dL (Negative); Urobilinogen,Urine < 2.0 mg/dL (<2.0); WBC,Urine < 1.0 /HPF (0.0-6.0)
[2020-10-08] MEDS: TERBUTALINE 1 MG/1 ML INJ SUB-Q PRN ×2 (10:02→10:57)
[2020-10-08 11:34] VITALS: BP 120/65
== END 2020-10-08 12:18 | disposition home or self-care (01) ==
LOC: TRG 03:47 → APU 03:48 → TRG 12:18
PROVIDERS: ATTEND Obstetrics & Gynecology
DX: O62.9 Abnormality of forces of labor, unspecified (principal); Z87.891 Personal history of nicotine dependence; Z3A.37 37 weeks gestation of pregnancy
CPT/HCPCS: 59025; 81001; 96360; 96361; 96372; J0595; J3105; J7120; 96374